=== PATIENT | female | born 1985 | race Caucasian/White ===

== ENCOUNTER 2024-06-03 04:48 | Emergency (ER) | payer SELFPAY ==
--- NOTE | ~2024-06-03 | XR_ITS ---
Right ankle Technique: AP, oblique, and lateral views were obtained. Clinical History: Pain Findings: No acute fracture or dislocation is seen. Osseous alignment is anatomic. Ankle mortise and other visualized joint spaces are preserved. Plantar calcaneal spur present. Soft tissues are otherwi se unremarkable. Impression: No acute abnormality. Plantar calcaneal spur. Reviewed, dictated and finalized at [facility]. T STENOGRAPHER Impression: No acute abnormality. Plantar calcaneal spur.
--- NOTE | ~2024-06-03 | XR_ITS ---
XR foot RT min 3V Ordering provider: Andrew Hatfield MD History: . injury . Comparison: None. FINDINGS: BONES: No acute fracture or dislocation. Calcaneus spur. JOINT SPACES: Normal. No tarsal coalition. SOFT TISSUES: Normal. IMPRESSION: No acute osseous abnormality of the right foot. Reviewed, dictated and finalized at location A. OSTRATEGY ARCHITECT
[2024-06-03 04:50] VITALS: BP 142/72; PULSE 75; RESP 18; TEMP 37.1; O2SAT 99
--- NOTE | 2024-06-03 07:03 | ED.FALL ---
HPI - Fall General Chief Complaint: Fall Stated Complaint: fall Time Seen by Provider: 06/03/24 06:54 History of Present Illness HPI Narrative: 38 Year old female presenting to the emergency department for evaluation for right foot and ankle pain. Patient states she was walking down stairs when it was too dark and she missed the bottom step. Patient states her foot got caught on a step and she fell forward. Patient does report pain in the lateral right ankle and foot. Patient denies striking head denies loss consciousness. Related Data Allergies Allergy/AdvReac Type Severity Reaction Status Date / Time No Known Allergies Allergy Verified 06/03/24 04:57 Review of Systems Review of Systems: All systems reviewed & are unremarkable except as noted in HPI and below Exam Narrative: APPEARANCE: Well appearing, no pain, no distress, well-nourished. HEAD: normocephalic, atraumatic. EYES: PERRLA/EOMI, conjunctivae clear. NOSE: Normal no drainage EARS:TMS clear with good light reflex. THROAT: Pharynx clear, no exudate. NECK: Supple. No adenopathy, no masses. RESPIRATORY: Airway patent, respirations nonlabored. Clear to auscultation bilaterally, no rales, rhonchi, wheezing. CARDIOVASCULAR: Regular rate and rhythm without murmurs rubs or gallops. ABDOMINAL: Soft, nontender, nondistended, normal bowel sounds MUSCULOSKELETAL: right lateral foot pain NEURO: Alert. Cranial nerves II through XII intact. Grossly intact SKIN: Warm, dry. Normal Color Course Course Emergency Course: X-rays were negative for acute fracture dislocation patient was discharged home Vital Signs Vital signs: Vital Signs Temperature 98.7 F 06/03/24 04:50 Pulse Rate 75 06/03/24 04:50 Respiratory Rate 18 06/03/24 04:50 Blood Pressure 142/72 H 06/03/24 04:50 Pulse Oximetry 99 06/03/24 04:50 Oxygen Delivery Room Air 06/03/24 04:50 Temperature 98.7 F 06/03/24 04:50 Pulse Rate 76 06/03/24 08:40 Respiratory Rate 14 06/03/24 08:40 Blood Pressure 138/89 06/03/24 08:40 Pulse Oximetry 99 06/03/24 08:40 Oxygen Delivery Room Air 06/03/24 04:50 MDM - Fall MDM Narrative Medical decision making narrative: 38-year-old female presenting to the emergency department for evaluation for right foot and ankle pain. Foot and ankle x-rays were negative for acute fracture dislocation. Patient does have some ecchymosis along the right lateral foot. Patient was provided Gutierrez wrap and crutches for limited weight-bearing. Patient was encouraged close follow-up with primary care physician. All questions concerns were addressed patient was comfortable the plan for discharge and close follow-up. Differential Diagnosis Differential diagnosis: Likely other (Foot fracture, foot contusion, ankle sprain, ankle fracture) Imaging Data Radiologist's impression: Impressions Ankle X-Ray 06/03/24 07:05 Impression: No acute abnormality. Plantar calcaneal spur. Foot X-Ray 06/03/24 08:17 IMPRESSION: No acute osseous abnormality of the right foot. Discharge Plan Discharge Clinical Impression: Ankle sprain, Contusion of foot Patient Disposition: Home, Self-Care Condition: Stable Instructions: Antibiotic Form, Crutch Instructions (ED) Additional Instructions: Gutierrez wrap for comfort, crutches for limited weight-bearing. Have close follow-up with your primary care physician. Ice as directed. Tylenol and ibuprofen for pain control. Patient Language: Sen[place]alese Follow-up/Referrals: PHYSICIAN NOT ON STAFF,NONSTAFF [Primary Care Provider] -
[2024-06-03 08:40] VITALS: BP 138/89; PULSE 76; RESP 14; O2SAT 99
== END 2024-06-03 08:43 | disposition home or self-care (01) ==
LOC: ANHED 08:40
PROVIDERS: Emergency Provider Emergency Medicine
DX: S93.401A Sprain of unspecified ligament of right ankle, initial encounter (principal); S90.31XA Contusion of right foot, initial encounter; W10.9XXA Fall (on) (from) unspecified stairs and steps, initial encounter
CPT/HCPCS: 73600; 73630; 99283